=== PATIENT | male | born 1970 | race Two or more races ===

== ENCOUNTER 2022-07-10 14:26 | Outpatient (REF) | payer OTHER, SELFPAY ==
[2022-07-10 15:15] LABS: COVID-19 Test Negative (Negative); IDNOW Serial# 9DB6401D
== END 2022-07-10 14:27 | disposition home or self-care (01) ==
LOC: HO.LAB 14:26
PROVIDERS: Visit Provider Internal Medicine
DX: Z20.822 Contact with and (suspected) exposure to COVID-19 (principal)
CPT/HCPCS: 87635; C9803

== ENCOUNTER 2022-07-10 14:53 | Emergency (ER) | payer OTHER, SELFPAY ==
[2022-07-10 15:55] VITALS: BP 127/88; PULSE 104; RESP 16; TEMP 36.1; O2SAT 99; BMI 24.7
--- NOTE | 2022-07-10 15:57 | ED.GENADULT ---
HPI - General Adult General Chief complaint: Abdominal Pain <DAVI Ruiz Last Filed: 07/16/22 12:28> Stated complaint: Abd pain/Diarrhea <DAVI Ruiz Last Filed: 07/16/22 12:28> Time Seen by Provider: 07/10/22 17:13 <DAVI Ruiz Last Filed: 07/16/22 12:28> Source: patient <DAVI Garcia Last Filed: 07/10/22 18:16> Mode of arrival: ambulatory <DAVI Garcia Last Filed: 07/10/22 18:16> Limitations: no limitations <DAVI Garcia Last Filed: 07/10/22 18:16> History of Present Illness HPI narrative: 51-year-old male presents to the ER for evaluation of nausea, vomiting, diarrhea and upper abdominal pain that started yesterday. He reports not eating lunch or dinner because of ongoing nausea and upper abdominal pain. He reports nonbloody diarrhea and nonbloody vomitus. No fever or chills, no urinary symptoms or URI symptoms. Last thing he ate was breakfast sandwich yesterday morning, multiple other people had and he reports they have not been sick. He thinks he had some bad [place] food over the weekend. He states he was up all night vomiting and having diarrhea. Last episode was in the middle of the night. None today. He has not tried to eat or drink anything it today. Reports the pain is in his upper abdomen in the middle, burning in nature. No radiation. No chest pain or shortness of breath. <DAVI Garcia Last Filed: 07/10/22 18:16> MD complaint: Vomiting and diarrhea along with abdominal pain <DAVI Garcia Last Filed: 07/10/22 18:16> Onset (ago): day(s) (1) <DAVI Garcia Last Filed: 07/10/22 18:16> Location: abdomen <DAVI Garcia Last Filed: 07/10/22 18:16> Radiation: non-radiation <DAVI Garcia Last Filed: 07/10/22 18:16> Severity: moderate <DAVI Garcia Last Filed: 07/10/22 18:16> Quality: dull and other (Burning) <DAVI Garcia Last Filed: 07/10/22 18:16> Pain Consistency: intermittent <DAVI Garcia Last Filed: 07/10/22 18:16> Relieving factors: none <DAVI Garcia Last Filed: 07/10/22 18:16> Exacerbating factors: eating <DAVI Garcia - Last Filed: 07/10/22 18:16> Associated symptoms: loss of appetite, malaise, nausea/vomiting and weakness <DAVI Garcia Last Filed: 07/10/22 18:16> Treatments prior to arrival: none <DAVI Garcia Last Filed: 07/10/22 18:16> Related Data Home medications: Previous Rx's Medication Instructions Recorded ondansetron 4 mg disintegrating 4 mg PO Q8H PRN nausea and 07/10/22 tablet vomiting 3 days #10 tabs <DAVI Ruiz - Last Filed: 07/16/22 12:28> Allergies/adverse reactions: Allergies Allergy/AdvReac Type Severity Reaction Status Date / Time No Known Allergies Allergy Verified 07/10/22 15:54 <DAVI Ruiz Last Filed: 07/16/22 12:28> Review of Systems Review of Systems: Yes all other systems are reviewed and are negative <DAVI Garcia Last Filed: 07/10/22 18:16> [facility] Social History Social History: Social History Advance Directives: No Advance Directives Information Provided: No <DAVI Ruiz Last Filed: 07/16/22 12:28> Physical Exam ED Vital Signs: Vital Signs - 24 hr 07/10/22 15:55 Temperature 96.9 F Pulse Rate 104 H Respiratory Rate 16 Blood Pressure 127/88 Pulse Oximetry 99 Oxygen Delivery Method Room Air BMI result Body Mass Index 24.7 <DAVI Ruiz Last Filed: 07/16/22 12:28> Vital Signs - 24 hr 07/10/22 15:55 Temperature 96.9 F Pulse Rate 104 H Respiratory Rate 16 Blood Pressure 127/88 Pulse Oximetry 99 Oxygen Delivery Method Room Air BMI result Body Mass Index 24.7 <DAVI Garcia Last Filed: 07/10/22 18:16> Appearance: Alert. Oriented X3. No acute distress. Eyes: Pupils equal, round and reactive to light. ENT: Pharynx normal. Neck: Normal inspection. Neck supple. CVS: Normal heart rate and rhythm. Pulses normal. Respiratory: No respiratory distress. Breath sounds normal. Abdomen: Soft with epigastric abdominal tenderness, no rebound or guarding. +BS x4 Skin: Skin warm and dry. Normal skin color. Normal skin turgor. No rashes. Extremities: No lower extremity edema. Neuro: Oriented X 3. nonfocal <DAVI Garcia Last Filed: 07/10/22 18:16> Course Course Course Narrative: RME: 51 yold male presents to the ED for abdominal pain, nausea, vomitting, and mutliple episodes of diarrhea since yesterday. Patient denies blood in stool. patient denies vomiting blood. Labs ordered <DAVI Ruiz - Last Filed: 07/16/22 12:28> Reevaluation(s) Reevaluation #1: labs unremarkable. given GI cocktail and imodium. tolerating PO. no vomiting or diarrhea here. most likely gastgroenteritis. stable for d/c home with zofran and supportive care. patient agrees [facility] plan. <DAVI Garcia - Last Filed: 07/10/22 18:16> Medications Administered Discontinued Medications Generic Name Dose Route Start Last Admin Trade Name Freq PRN Reason Stop Dose Admin Al Hydroxide/Mg Hydroxide 30 ml 07/10/22 17:38 07/10/22 17:49 Magnesium Hydrox/Alum Hydrox 30 Ml Oral.Susp PO 07/10/22 17:39 30 ml ONCE ONE Administration Famotidine 20 mg 07/10/22 17:38 07/10/22 17:50 Famotidine 20 Mg Tablet PO 07/10/22 17:39 20 mg ONCE ONE Administration Lidocaine HCl 15 ml 07/10/22 17:38 07/10/22 17:50 Lidocaine Hcl Viscous 2 % 15 Ml Solution MUCOUS MEM 07/10/22 17:39 15 ml ONCE ONE Administration Loperamide HCl 4 mg 07/10/22 17:38 07/10/22 17:50 Loperamide Hcl 2 Mg Capsule PO 07/10/22 17:39 4 mg ONCE ONE Administration <DAVI Ruiz - Last Filed: 07/16/22 12:28> Medications Administered Discontinued Medications Generic Name Dose Route Start Last Admin Trade Name Kolby PRN Reason Stop Dose Admin Al Hydroxide/Mg Hydroxide 30 ml 07/10/22 17:38 07/10/22 17:49 Magnesium Hydrox/Alum Hydrox 30 Ml Oral.Susp PO 07/10/22 17:39 30 ml ONCE ONE Administration Famotidine 20 mg 07/10/22 17:38 07/10/22 17:50 Famotidine 20 Mg Tablet PO 07/10/22 17:39 20 mg ONCE ONE Administration Lidocaine HCl 15 ml 07/10/22 17:38 07/10/22 17:50 Lidocaine Hcl Viscous 2 % 15 Ml Solution MUCOUS MEM 07/10/22 17:39 15 ml ONCE ONE Administration Loperamide HCl 4 mg 07/10/22 17:38 07/10/22 17:50 Loperamide Hcl 2 Mg Capsule PO 07/10/22 17:39 4 mg ONCE ONE Administration <DAVI Garcia - Last Filed: 07/10/22 18:16> Medical Decision Making Differential Diagnosis Differential Diagnoses: The differential diagnosis associated with the presentation includes <DAVI Garcia - Last Filed: 07/10/22 18:16> Acute viral gastroenteritis, bacterial gastroenteritis, colitis, diverticulitis, cholecystitis, pancreatitis, viral URI, UTI, pyelonephritis, bowel obstruction <DAVI Garcia - Last Filed: 07/10/22 18:16> Lab Data MDM Lab Attestation statement: I reviewed the patient's lab results. <DAVI Garcia - Last Filed: 07/10/22 18:16> mildly elevated BUN and hemoconcentration c/w GI losses <DAVI Garcia - Last Filed: 07/10/22 18:16> Result Diagrams: 07/10/22 15:59 07/10/22 15:59 <DAVI Ruiz - Last Filed: 07/16/22 12:28> Labs: Lab Results 07/10/22 07/10/22 07/10/22 Range/Units 15:59 15:59 15:59 WBC 10.6 (4.8-10.8) X10*3/uL RBC 5.87 H (4.60-5.80) X10*6/uL Hgb 17.4 (14.0-18.0) g/dl Hct 52.6 H (42.0-52.0) % MCV 89.6 (80.0-98.0) fL MCH 29.6 (27.0-33.0) pg MCHC 33.1 (31.0-36.0) g/dl RDW 13.3 (11.0-16.0) % Plt Count 316 (160-400) X10*3/uL MPV 9.2 L (9.4-12.4) fL Immature Gran % (Auto) 0.3 (0.0-0.4) % Neut % (Auto) 72.8 (45-73) % Lymph % (Auto) 19.6 L (20-40) % [place] % (Auto) 6.0 (2-11) % Eos % (Auto) 1.2 (0-4) % Baso % (Auto) 0.1 (0-2) % Lymph # (Auto) 2.1 (1.2-4.9) X10*3/uL [place] # (Auto) 0.6 (0.1-1.2) X10*3/uL Eos # (Auto) 0.1 (0.0-0.4) X10*3/uL Baso # (Auto) 0.0 (0.0-0.2) X10*3/uL Abs Immat Gran (auto) 0.03 (0.00-0.03) X10*3/uL Absolute Neuts (auto) 7.7 (2.0-8.3) x10*3/uL Absolute Nucleated RBC 0.000 (0.0-0.012) X10*3/uL Nucleated RBC % (auto) 0.0 (0.0-0.2) /100WBC Sodium 139 (135-145) mmol/L Potassium 4.5 (3.3-5.1) mmol/L Chloride 104 (96-108) mmol/L Carbon Dioxide 27 (22-29) mmol/L Anion Gap 13 (12-20) BUN 24 H (9-16) mg/dL Creatinine 1.02 (0.5-1.4) mg/dL Estim Creat Clear Calc 90.4 Estimated GFR > 60 Random Glucose 104 (60-115) mg/dL Calcium 9.6 (8.4-10.2) mg/dL Total Bilirubin 1.3 H (0.0-1.0) mg/dL AST 15 (5-37) U/L ALT 17 (0-40) U/L Alkaline Phosphatase 86 (39-117) U/L Total Protein 8.0 (6.5-8.0) g/dL Albumin 4.8 (3.5-5.0) g/dL Lipase 15 (8-78) U/L Influenza Type A (PCR) NEGATIVE (Negative) Influenza Type B (PCR) NEGATIVE (Negative) RSV RNA Qual (PCR) NEGATIVE (Negative) SARS-CoV-2 RNA (RT-PCR) NEGATIVE (Negative) <DAVI Ruiz - Last Filed: 07/16/22 12:28> Lab Results 07/10/22 07/10/22 07/10/22 Range/Units 15:59 15:59 15:59 WBC 10.6 (4.8-10.8) X10*3/uL RBC 5.87 H (4.60-5.80) X10*6/uL Hgb 17.4 (14.0-18.0) g/dl Hct 52.6 H (42.0-52.0) % MCV 89.6 (80.0-98.0) fL MCH 29.6 (27.0-33.0) pg MCHC 33.1 (31.0-36.0) g/dl RDW 13.3 (11.0-16.0) % Plt Count 316 (160-400) X10*3/uL MPV 9.2 L (9.4-12.4) fL Immature Gran % (Auto) 0.3 (0.0-0.4) % Neut % (Auto) 72.8 (45-73) % Lymph % (Auto) 19.6 L (20-40) % [place] % (Auto) 6.0 (2-11) % Eos % (Auto) 1.2 (0-4) % Baso % (Auto) 0.1 (0-2) % Lymph # (Auto) 2.1 (1.2-4.9) X10*3/uL [place] # (Auto) 0.6 (0.1-1.2) X10*3/uL Eos # (Auto) 0.1 (0.0-0.4) X10*3/uL Baso # (Auto) 0.0 (0.0-0.2) X10*3/uL Abs Immat Gran (auto) 0.03 (0.00-0.03) X10*3/uL Absolute Neuts (auto) 7.7 (2.0-8.3) x10*3/uL Absolute Nucleated RBC 0.000 (0.0-0.012) X10*3/uL Nucleated RBC % (auto) 0.0 (0.0-0.2) /100WBC Sodium 139 (135-145) mmol/L Potassium 4.5 (3.3-5.1) mmol/L Chloride 104 (96-108) mmol/L Carbon Dioxide 27 (22-29) mmol/L Anion Gap 13 (12-20) BUN 24 H (9-16) mg/dL Creatinine 1.02 (0.5-1.4) mg/dL Estim Creat Clear Calc 90.4 Estimated GFR > 60 Random Glucose 104 (60-115) mg/dL Calcium 9.6 (8.4-10.2) mg/dL Total Bilirubin 1.3 H (0.0-1.0) mg/dL AST 15 (5-37) U/L ALT 17 (0-40) U/L Alkaline Phosphatase 86 (39-117) U/L Total Protein 8.0 (6.5-8.0) g/dL Albumin 4.8 (3.5-5.0) g/dL Lipase 15 (8-78) U/L Influenza Type A (PCR) NEGATIVE (Negative) Influenza Type B (PCR) NEGATIVE (Negative) RSV RNA Qual (PCR) NEGATIVE (Negative) SARS-CoV-2 RNA (RT-PCR) NEGATIVE (Negative) <DAVI Garcia - Last Filed: 07/10/22 18:16> Tests considered The following testing was considered but not selected: CT abd considered, not performed, only has tender epigastric area. lipase normal. <DAVI Garcia Last Filed: 07/10/22 18:16> Prescription Management I considered prescription management with: Pain Medication and Antibiotic <DAVI Garcia Last Filed: 07/10/22 18:16> most likely viral gastroenteritis, hold off on pain meds and abx, d/c with supportive care <DAVI Garcia Last Filed: 07/10/22 18:16> Critical Care Time Critical Care Time Critical Care Time: No <DAVI Garcia - Last Filed: 07/10/22 18:16> Discharge Plan Discharge Clinical Impression: Gastroenteritis <DAVI Ruiz Last Filed: 07/16/22 12:28> Patient Disposition: Home, Self-Care <DAVI Ruiz Last Filed: 07/16/22 12:28> Instructions: Gastroenteritis (ED) <DAVI Ruiz Last Filed: 07/16/22 12:28> Additional Instructions: You lab workup today was unremarkable. You most likely have a viral GI bug also known as gastroenteritis. Treatment is supportive care, symptoms usually resolve on their own in 48-72 hours. Recommend rest and plenty of oral hydration. Stick to a bland diet like soup and toast while you are not feeling well. Take the prescribed medication as needed for nausea. Recommend over the counter Pepto Bismol or Imodium for upset stomach and diarrhea. Follow up with your doctor as needed. If you develop new or worsening symptoms call 911 or come back to the ER for further evaluation. <DAVI Ruiz - Last Filed: 07/16/22 12:28> Prescriptions: New ondansetron 4 mg tablet,disintegrating 4 mg PO Q8H PRN (Reason: nausea and vomiting) 3 Days Qty: 10 0RF <DAVI Ruiz - Last Filed: 07/16/22 12:28> Stand Alone Forms: Work/School Release <DAVI Ruiz Last Filed: 07/16/22 12:28> Interventions: ED Discharge Assessment Last Done: 07/10/22 18:27 <DAVI Ruiz Last Filed: 07/16/22 12:28> Discharge Date/Time: 07/10/22 18:28 <DAVI Ruiz Last Filed: 07/16/22 12:28>
[2022-07-10 16:06] LABS: MANUAL DIFF FLAG NO
[2022-07-10 16:08] LABS: Basophils Percent Auto 0.1 % (0-2); Eosinophils Absolute Auto 0.1 X10*3/uL (0.0-0.4); Eosinophils Percent Auto 1.2 % (0-4); Hematocrit 52.6 % (42.0-52.0); Hemoglobin 17.4 g/dl (14.0-18.0); Imm Gran Abs Auto 0.03 X10*3/uL (0.00-0.03); Imm Gran Pct Auto 0.3 % (0.0-0.4); Lymphocytes Absolute Auto 2.1 X10*3/uL (1.2-4.9); Lymphocytes Percent Auto 19.6 % (20-40); Mean Corpuscular HGB Conc 33.1 g/dl (31.0-36.0); Mean Corpuscular Hemoglobin 29.6 pg (27.0-33.0); Mean Corpuscular Volume 89.6 fL (80.0-98.0); Mean Platelet Volume 9.2 fL (9.4-12.4); Monocytes Absolute Auto 0.6 X10*3/uL (0.1-1.2); Neutrophils Absolute Auto 7.7 x10*3/uL (2.0-8.3); Neutrophils Percent Auto 72.8 % (45-73); Platelet Count 316 X10*3/uL (160-400); Red Blood Count 5.87 X10*6/uL (4.60-5.80); Red Cell Distribution Width 13.3 % (11.0-16.0); White Blood Count 10.6 X10*3/uL (4.8-10.8)
[2022-07-10 16:28] LABS: Alanine Aminotransferase 17 U/L (0-40); Albumin Level 4.8 g/dL (3.5-5.0); Alkaline Phosphatase 86 U/L (39-117); Anion Gap 13 (12-20); Aspartate Amino Transferase 15 U/L (5-37); Bilirubin Total 1.3 mg/dL (0.0-1.0); Blood Urea Nitrogen 24 mg/dL (9-16); Calcium 9.6 mg/dL (8.4-10.2); Carbon Dioxide 27 mmol/L (22-29); Chloride 104 mmol/L (96-108); Creatinine Clr Calc Pharmacy 90.4; Estimated Glomerular Filt Rate > 60; Glucose Random 104 mg/dL (60-115); Lipase 15 U/L (8-78); Potassium 4.5 mmol/L (3.3-5.1); Sodium 139 mmol/L (135-145)
[2022-07-10 16:54] LABS: Influenza A PCR NEGATIVE (Negative); Influenza B PCR NEGATIVE (Negative); Resp Syncy Virus RNA Qual PCR NEGATIVE (Negative); SARS COV2 PCR INHOUSE NEGATIVE (Negative)
[2022-07-10] MEDS: Magnesium Hydrox/Alum Hydrox 30 ML ORAL.SUSP PO (17:49)
[2022-07-10] MEDS: Famotidine 20 MG TABLET PO (17:50)
[2022-07-10] MEDS: Lidocaine HCl Viscous 2 % 15 ML SOLUTION MUCOUS MEM (17:50)
[2022-07-10] MEDS: Loperamide HCl 2 MG CAPSULE 4 MG PO (17:50)
== END 2022-07-10 18:28 | disposition home or self-care (01) ==
PROVIDERS: Physician Assistant; Emergency Provider Emergency Medicine Emergency Medical Services
DX: K52.9 Noninfective gastroenteritis and colitis, unspecified (principal); R11.2 Nausea with vomiting, unspecified; Z20.822 Contact with and (suspected) exposure to COVID-19; Z20.828 Contact with and (suspected) exposure to other viral communicable diseases
CPT/HCPCS: 0241U; 80053; 83690; 85025; 99282; 99283

== ENCOUNTER 2022-10-04 22:30 | Emergency (ER) | payer OTHER, SELFPAY ==
[2022-10-04 22:41] VITALS: BP 120/72; PULSE 100; RESP 16; TEMP 37.1; O2SAT 96; BMI 26.1
--- NOTE | 2022-10-05 02:20 | PC.NURSE ---
Pt remains frustrated that no MD has signed up for him. This RN notified by registration that pt left ED.
== END 2022-10-05 02:20 | disposition left against medical advice (07) ==
PROVIDERS: Emergency Provider Emergency Medicine; PCP Internal Medicine
DX: Z04.1 Encounter for examination and observation following transport accident (principal); M54.50 Low back pain, unspecified
CPT/HCPCS: 99281

== ENCOUNTER 2023-01-07 14:48 | Emergency (ER) | payer OTHER, SELFPAY ==
[2023-01-07] VITALS (8 sets, daily range): BP systolic 93–138; BP diastolic 53–82; PULSE 86–108; RESP 16–24; TEMP 36.6–36.8; O2SAT 95–98; BMI 27.6
--- NOTE | ~2023-01-07 | CT_ITS ---
EXAMINATION: CT HEAD WITHOUT CONTRAST (STROKE PROTOCOL) CLINICAL INFORMATION: Stroke protocol. COMPARISON: None available. TECHNIQUE: Contiguous axial imaging was performed from the skull base to vertex without intravenous administration of contrast. This CT examination was performed using dose optimization techniques as appropriate, variously including the following: *Automated exposure control *Adjustment of mA and/or kV according to patient size (this includes techniques or standardized protocols for targeted exams where dose is matched to indication/reason for exam; i.e. extremities or head) *Use of iterative reconstruction technique DLP: 741 mGy-cm FINDINGS: BRAIN PARENCHYMA: No acute hemorrhage. No mass effect or herniation. Rivero-white differentiation is maintained. White matter is within normal limits for age. VENTRICLES/EXTRA-AXIAL SPACES: No hydrocephalus or extra-axial fluid collections. EXTRACRANIAL STRUCTURES: Normal bones and soft tissues. Visualized paranasal sinuses and mastoids are clear. CT/CT head for stroke IMPRESSION: No acute intracranial pathology. Follow-up by CT will be followed by CTA This critical result was discussed with Dr. Colvin at 3:10 PM hours on 01/07/2023. It was ascertained that the content and urgency of the report was understood at the time of direct communication.
--- NOTE | ~2023-01-07 | MR_ITS ---
MRI OF THE BRAIN WITHOUT IV CONTRAST INDICATION: Right-sided deficits. COMPARISON: CT head and CTA head and neck 01/07/2023. TECHNIQUE: Multiplanar multisequence MR imaging of the brain was obtained without IV contrast. FINDINGS: This MRI is very limited due to significant artifact from dental hardware. There is an acute infarct within the posterior left MCA territory involving portions of the left parietal lobe, the left temporal operculum, and the posterior left insular ribbon. There is no significant mass effect and there is no definite hemorrhagic transformation with assessment limited by artifact. A punctate focus of increased signal on diffusion-weighted imaging within the left jared is felt to be artifactual. There is no hydrocephalus, extra-axial surface collection, or herniation. Attenuated left M1 MCA flow void in keeping with the left middle cerebral artery occlusion seen on the earlier CT of the head and neck. There is mild background chronic microangiopathy. The midline structures are normal. The cerebellar tonsils are normally positioned. The cerebellum and brainstem are normal. The craniocervical junction is normal. Osseous marrow signal intensity is homogenous. The visualized soft tissues are unremarkable. MR/MR head/brain wo con IMPRESSION: - This MRI is very limited due to significant artifact from dental hardware. There is an acute infarct within the posterior left MCA territory involving portions of the left parietal lobe, the left temporal operculum, and the posterior left insular ribbon. There is no significant mass effect and there is no definite hemorrhagic transformation with assessment limited by artifact. - Attenuated left M1 MCA flow void in keeping with the left middle cerebral artery occlusion seen on the earlier CT of the head and neck. Findings discussed with Dr. Treva Colvin at 4:24 PM on 01/07/2023.
--- NOTE | ~2023-01-07 | XR_ITS ---
EXAMINATION: XR CHEST CLINICAL INFORMATION: Cough. COMPARISON: None available. TECHNIQUE: Frontal view of the chest was obtained. FINDINGS: No significant cardiomediastinal contour abnormality. Minimal diffuse interstitial thickening without focal airspace opacities, pleural effusions or pneumothorax. No acute osseous findings. The visualized upper abdomen is within normal limits. XR/XR chest 1V IMPRESSION: Minimal interstitial thickening which is nonspecific and could be associated with asthma, bronchitis, reactive airways disease or atypical infections.
--- NOTE | ~2023-01-07 | CT_ITS ---
EXAMINATION: CT ANGIOGRAM HEAD CT ANGIOGRAM NECK CLINICAL INFORMATION: rt side hemiplegia, left facial asymm COMPARISON: None. TECHNIQUE: Test bolus sequences followed by intravenous administration 70 mL of Omnipaque 350. Helical imaging was performed in the axial plane from the aortic arch to the skull vertex. Delayed postcontrast imaging of the head was also performed. The data was processed at the office technologist's workstation for generation of MIP sequences. Angled MIPs and volume rendered reformatted images were also generated at an offline 3D workstation. Stenoses are assessed in accordance with Michelle et al. Quantification of Carotid Stenosis on CT Angiography. AJR 2006. 27(1):13-19. [address] CT examination was performed using dose optimization techniques as appropriate, variously including the following: *Automated exposure control *Adjustment of mA and/or kV according to patient size (this includes techniques or standardized protocols for targeted exams where dose is matched to indication/reason for exam; i.e. extremities or head) *Use of iterative reconstruction technique DLP: 1621 mGy-cm FINDINGS: CT HEAD: The ventricles and sulci are normal in size and configuration without significant volume loss or hydrocephalus. There is no abnormal attenuation within the brain parenchyma. No territorial loss of emerson-white differentiation. No acute intracranial hemorrhage or extra-axial fluid collection. No mass lesion, significant mass effect, or herniation pattern. No pathologic intra-axial enhancement or regional oligemia. The orbits are grossly normal. Paranasal sinuses and mastoid air cells are well aerated. Osseous structures are intact. CTA HEAD: There is an abrupt vessel cut off at the left distal M1 post bifurcation segment involving a trifurcation branch extending into the M2 division with preserved opacification of the two remaining superior and inferior division branches (image 76, series 7). configuration of the left PICA complex. No aneurysms and no high flow vascular malformations. Timing of the contrast bolus allows assessment of the major dural venous sinuses, which all opacify normally CTA NECK: Small of suboptimal timing of contrast bolus. Beam hardening artifact limits assessment of the great vessels. Classic 3 vessel branching pattern of the aortic arch. The common carotid arteries are widely patent. The carotid bifurcations and bilateral internal carotid arteries are normal. The vertebral arteries are codominant The vertebral artery ostia are widely patent. Both vertebral arteries are widely patent throughout their extracranial cervical course. CT NECK: Symmetric prominence of the bilateral palatine tonsils for patient's age. Dependent secretions within the hypopharynx. Medialized right aryepiglottic fold with prominent right piriform sinus and right laryngeal ventricle which can correlated clinically for signs of right vocal cord paresis. Patulous appearance of the upper thoracic esophagus. The visualized lung apices and upper mediastinum are within normal limits. Cervical spondylosis. CT/CT angio head neck stroke IMPRESSION: 1. Abrupt vessel cut off/arterial occlusion at the left distal M1 post bifurcation segment involving a trifurcation branch extending into the M2 division with preserved opacification of the two remaining superior and inferior division branches (image 76, series 7). This was communicated to Treva Colvin MD on 01/07/2023 at 12:48 PM. No definite loss of emerson-white differentiation in the left MCA territory, noting MRI would be more sensitive modality for assessment of acute ischemia. 2. No acute arterial occlusion or hemodynamically significant stenosis within the neck. 3. Findings described above that can be correlated for signs of right vocal cord paresis.
--- NOTE | 2023-01-07 14:54 | ED_ITS ---
HPI - Neuro Symptoms/Deficit General Chief Complaint: Stroke Stated Complaint: STROKE ALERT,LKWT 10AM,R SIDE DEFICIT PER EMS Time Seen by Provider: 01/07/23 14:52 Source: EMS Mode of arrival: EMS History of Present Illness HPI Narrative: 61-year-old male brought in by EMS with last known well at 10:00 hours from home, profound right-sided hemiplegia and right-sided facial asymmetry Related Data Previous Rx's Medication Instructions Recorded ondansetron 4 mg disintegrating 4 mg PO Q8H PRN nausea and 07/10/22 tablet vomiting 3 days #10 tabs Allergies Allergy/AdvReac Type Severity Reaction Status Date / Time No Known Allergies Allergy Verified 01/07/23 15:11 Review of Systems Review of Systems: Yes Unobtainable due to mental condition PMFSH Past Medical History Source: nursing notes reviewed Social History Social History (System 01/07/23 @ 15:11 by Quiana Hussein) Advance Directives: No Advance Directives Information Provided: No Physical Exam Vital Signs: Vital Signs: Last Vital Signs Temp 98 F 01/07/23 17:15 Pulse 98 01/07/23 17:55 Resp 18 01/07/23 17:55 BP 132/77 01/07/23 17:55 Pulse Ox 98 01/07/23 17:55 O2 Del Method Room Air 01/07/23 17:55 BMI result Body Mass Index 27.6 VITAL SIGNS: Reviewed. GENERAL: Well developed, well nourished, in no acute distress. HEAD: Normocephalic/atraumatic EYES: PERRLA, EOMI EARS: Ext canals without abnormality NOSE: Nares patent bilateral OROPHARYNX: no oral lesions noted, posterior pharynx clear NECK: Supple, no adenopathy LUNGS: Normal breath sounds. No adventitious sounds or accessory muscle use. CARDIOVASCULAR: Regular rate and rhythm without noted murmurs, no JVD or lower extremity edema. ABDOMEN: Soft, non-tender, non-distended with bowel sounds. MUSCULOSKELETAL: No tenderness, deformities, or effusions noted on gross inspection. EXTREMITIES: No cyanosis, clubbing or edema. SKIN: Inspection of the skin reveals no rashes NEUROLOGIC: Alert but with profound right-sided he hemiplegia, dysarthria, right-sided facial asymmetry. Medications Administered Discontinued Medications Generic Name Dose Route Start Last Admin Trade Name Freq PRN Reason Stop Dose Admin Alteplase, Recombinant 74.16 mg 01/07/23 16:09 01/07/23 16:18 Alteplase 100 Mg Vial 0.9 mg/kg (74.16 mg) 01/07/23 16:10 74.16 mg IV Administration ONCE ONE Dextrose 25 gm 01/07/23 16:50 01/07/23 17:33 Dextrose 50 % 25 Gm/50 Ml Syringe IVPUSH 01/07/23 16:51 25 gm ONCE ONE Administration Calcium Gluconate 2 gm in 100 mls @ 400 mls/hr 01/07/23 16:50 01/07/23 17:36 Calcium Gluconate IV 01/07/23 17:04 Infused ONCE ONE Infusion Sodium Chloride 1,000 mls @ 999 mls/hr 01/07/23 17:00 01/07/23 17:33 Ns IV 01/07/23 18:00 999 mls/hr .Q1H1M MARZENA Administration Insulin Human Regular 5 unit 01/07/23 16:50 01/07/23 17:33 Insulin Regular, Human 100 Unit/Ml 3 Ml Vial IVPUSH 01/07/23 16:51 5 unit ONCE ONE Administration Iohexol 100 ml 01/07/23 15:09 01/07/23 15:09 Iohexol 350 Mg/Ml 100 Ml Infus..Btl IV 01/07/23 15:10 70 ml ONCE ONE Administration Medical Decision Making Medical Decision Making MDM Narrative: 1455: Consulted with Neurology after activation stroke protocol. There are 2 charts for the patient, and original chart the did not have patient's prior information was retained as entire stroke protocol was initiated off of it, however in the interim an additional chart had been started and lab work was sent under that identification number and is not currently showing up. I am awaiting for chart emerging to occur. DDX: ischemic, hemorrhagic, LVO 1510: Pt noted to be using right upper extremity although uncoordinated movement, able to lift right leg but unable to have coordinated moved, patient also reports the sensation is blunted. Additional information obtained with court interpreter and patient states that he has had intermittent fevers and chills as well as nausea and vomiting. 1511: [facility] called and informed me that there are no acute findings on the noncontrast CT head. 1548: Call from [facility] and informed that there is a cut off from left MCA M1 extending into M2 1554: I have reached out to [facility] for LV0 protocol, have notified Shraddha Navas who is the curriculum development coordinator and is down MRI currently and will return the patient to the emergency room. All images have been transferred over to [facility]. 1610: Both Dr. Mueller and Shraddha have informed me that there is a MRI flare dif ference indicating treatment with tPA, this is been ordered and will be administered shortly. 1615: I spoke with Dr. Hewitt at [facility] who would like to see the MRI and after he has reviewed these imaging studies will call back. 1627: I spoke with Dr. Hewitt at [facility] who states that the best management at this time is the tPA and when asked if there would be any interventions indicated given the age and presentation of the patient I was informed that there was nothing further that could be done for the brain tissue. 1633: I reaching out to [facility] after speaking with Dr. Mueller regarding the decision by [facility]. If there is consensus for no intervention then patient will stay here in our ICU. 1640: I spoke with [facility] who is accepting the patient ED to ED under Dr. Rollins and the transfer center will contact me to speak with the neurologist. 1700: The laboratory results have finally posted to the patient's chart and I have reviewed these, hematologic indices demonstrate a leukocytosis with left shift without anemia or thrombocytopenia. Patient will receive 2 g cefepime and an additional L of IV fluids Coagulation studies are grossly within normal benites its, chemistry indices demonstrate a hyperkalemia with corresponding YURI, this will be treated with 2 g calcium gluconate as well as 5 units regular insulin and an amp of D50. Otherwise, troponin is undetectable, CPK- 61. This is a 52-year-old male with known diabetes and HIV who presents with MCA stroke and was treated with tPA. On review of patient's lab work there is an YURI with hyperkalemia and leukocytosis which is new, given that patient also arrived tachycardic and low blood pressures which I would not expect to see with an MCA stroke I a.m. assuming that patient may have an underlying infectious etiology and so he was treated with IV fluids and antibiotics as well as treatment for the elevated potassium levels. Will pursue a chest x-ray, Harris, and UA 1710: On re-evaluation pt speech is improved and RUE/RLE with movement that is better controlled. 1713: Dr Mojica, [facility], who is accepting the patient to [facility] an evaluation for thrombectomy. 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 Patient is not hypoxic so do not expect that this is a pneumonia. Differential Diagnosis Differential Diagnoses: The differential diagnosis associated with the presentation includes Please see the discussion above Admission/Observation Consideration of admission/observation: Escalation of care including admission/observation considered Please see the discussion above Consult Healthcare Provider Management of the patient was discussed with: [facility] Advocate Please see the discussion above Lab Data MDM Lab Attestation statement: I reviewed the patient's lab results. I do not have access to lab results 01/07/23 15:25 01/07/23 15:25 Labs: Lab Results 01/07/23 01/07/23 01/07/23 Range/Units 15:17 15:25 15:25 WBC 17.4 H (4.8-10.8) X10*3/uL RBC 5.59 (4.60-5.80) X10*6/uL Hgb 16.8 (14.0-18.0) g/dl Hct 51.5 (42.0-52.0) % MCV 92.1 (80.0-98.0) fL MCH 30.1 (27.0-33.0) pg MCHC 32.6 (31.0-36.0) g/dl RDW 13.5 (11.0-16.0) % Plt Count 342 (160-400) X10*3/uL MPV 9.4 (9.4-12.4) fL Immature Gran % (Auto) 1.2 H (0.0-0.4) % Neut % (Auto) 81.1 H (45-73) % Lymph % (Auto) 7.8 L (20-40) % [place] % (Auto) 8.9 (2-11) % Eos % (Auto) 0.7 (0-4) % Baso % (Auto) 0.3 (0-2) % Lymph # (Auto) 1.4 (1.2-4.9) X10*3/uL [place] # (Auto) 1.5 H (0.1-1.2) X10*3/uL Eos # (Auto) 0.1 (0.0-0.4) X10*3/uL Baso # (Auto) 0.1 (0.0-0.2) X10*3/uL Abs Immat Gran (auto) 0.21 H (0.00-0.03) X10*3/uL Absolute Neuts (auto) 14.1 H (2.0-8.3) x10*3/uL Absolute Nucleated RBC 0.000 (0.0-0.012) X10*3/uL Nucleated RBC % (auto) 0.0 (0.0-0.2) /100WBC PT 11.5 (11.1-13.3) SEC Whole Blood PT 12.5 (11.1-13.5) sec INR 0.9 (0.9-1.1) Whole Blood INR 1.0 (0.9-1.1) APTT 28.5 (26.0-36.4) SEC Sodium (135-145) mmol/L Potassium (3.3-5.1) mmol/L Chloride (96-108) mmol/L Carbon Dioxide (22-29) mmol/L Anion Gap (12-20) BUN (9-16) mg/dL Creatinine (0.5-1.4) mg/dL Estim Creat Clear Calc Estimated GFR Random Glucose (60-115) mg/dL Calcium (8.4-10.2) mg/dL Total Creatine Kinase (38-174) U/L Troponin I High Sens (<3.5-35.0) ng/L 01/07/23 01/07/23 Range/Units 15:25 15:25 WBC (4.8-10.8) X10*3/uL RBC (4.60-5.80) X10*6/uL Hgb (14.0-18.0) g/dl Hct (42.0-52.0) % MCV (80.0-98.0) fL MCH (27.0-33.0) pg MCHC (31.0-36.0) g/dl RDW (11.0-16.0) % Plt Count (160-400) X10*3/uL MPV (9.4-12.4) fL Immature Gran % (Auto) (0.0-0.4) % Neut % (Auto) (45-73) % Lymph % (Auto) (20-40) % [place] % (Auto) (2-11) % Eos % (Auto) (0-4) % Baso % (Auto) (0-2) % Lymph # (Auto) (1.2-4.9) X10*3/uL [place] # (Auto) (0.1-1.2) X10*3/uL Eos # (Auto) (0.0-0.4) X10*3/uL Baso # (Auto) (0.0-0.2) X10*3/uL Abs Immat Gran (auto) (0.00-0.03) X10*3/uL Absolute Neuts (auto) (2.0-8.3) x10*3/uL Absolute Nucleated RBC (0.0-0.012) X10*3/uL Nucleated RBC % (auto) (0.0-0.2) /100WBC PT (11.1-13.3) SEC Whole Blood PT (11.1-13.5) sec INR (0.9-1.1) Whole Blood INR (0.9-1.1) APTT (26.0-36.4) SEC Sodium 138 (135-145) mmol/L Potassium 5.9 H D (3.3-5.1) mmol/L Chloride 107 (96-108) mmol/L Carbon Dioxide 17 L (22-29) mmol/L Anion Gap 20 (12-20) BUN 27 H (9-16) mg/dL Creatinine 3.03 H (0.5-1.4) mg/dL Estim Creat Clear Calc TNP Estimated GFR 22 Random Glucose 173 H (60-115) mg/dL Calcium 8.9 D (8.4-10.2) mg/dL Total Creatine Kinase 61 (38-174) U/L Troponin I High Sens < 2.7 (<3.5-35.0) ng/L Independent Interpretation I performed an independent interpretation of an: EKG Interpretation: Sinus tachycardia, HR-105, no STEMI, DE/QRS/QTC is within normal limits. Radiology Impression Radiologist Impression: No intracranial hemorrhage, LV0, otherwise my interpretation is in agreement with radiology's impression. External Record Review External record reviewed: Outpatient record and Prior outpatient labs Chronic Conditions Patient?s care impacted by: Diabetes and Other HIV NIH Stroke Scale Internal: Initial- Upon Arrival Level of Consciousness: Alert Level of Consciousness Questions: Answers neither question correctly Level of Consciousness Commands: Performs neither task correctly Best Gaze: Normal Visual: No visual loss Facial Palsy: Complete paralysis (Right) Motor Arm (Right): No movement Motor Arm (Left): No drift Motor Leg (Right): No movement Motor Leg (Left): No drift Limb Ataxia: Absent Sensory: Mild to moderate sensory loss Best Language: Severe aphasia Dysarthia: Mild to moderate dysarthria Extinction and Inattention: No abnormality Score: 19 Critical Care Time Critical Care Time Critical Care Time: Yes Total Critical Care Time: 90 Attestation: I personally attest to this time spent taking care of the patient. Discharge Plan Discharge Clinical Impression: Acute ischemic left MCA stroke, Hyperkalemia, YURI (acute kidney injury), Sepsis Patient Disposition: Xfer [facility] Transfer Details: Acute stroke, sepsis Prescriptions: No Action ondansetron 4 mg tablet,disintegrating 4 mg PO Q8H PRN (Reason: nausea and vomiting) 3 Days Qty: 10 0RF
[2023-01-07] MEDS: iohexoL 350 MG/ML 100 ML INFUS..BTL IV (15:09)
[2023-01-07 15:28] LABS: MANUAL DIFF FLAG NO
[2023-01-07 15:31] LABS: Basophils Absolute Auto 0.1 X10*3/uL (0.0-0.2); Basophils Percent Auto 0.3 % (0-2); Eosinophils Absolute Auto 0.1 X10*3/uL (0.0-0.4); Eosinophils Percent Auto 0.7 % (0-4); Hematocrit 51.5 % (42.0-52.0); Hemoglobin 16.8 g/dl (14.0-18.0); Imm Gran Abs Auto 0.21 X10*3/uL (0.00-0.03); Imm Gran Pct Auto 1.2 % (0.0-0.4); Lymphocytes Absolute Auto 1.4 X10*3/uL (1.2-4.9); Lymphocytes Percent Auto 7.8 % (20-40); Mean Corpuscular HGB Conc 32.6 g/dl (31.0-36.0); Mean Corpuscular Hemoglobin 30.1 pg (27.0-33.0); Mean Corpuscular Volume 92.1 fL (80.0-98.0); Mean Platelet Volume 9.4 fL (9.4-12.4); Monocytes Absolute Auto 1.5 X10*3/uL (0.1-1.2); Monocytes Percent Auto 8.9 % (2-11); Neutrophils Absolute Auto 14.1 x10*3/uL (2.0-8.3); Neutrophils Percent Auto 81.1 % (45-73); Platelet Count 342 X10*3/uL (160-400); Red Blood Count 5.59 X10*6/uL (4.60-5.80); Red Cell Distribution Width 13.5 % (11.0-16.0); SCAN SMEAR FLAG 1; White Blood Count 17.4 X10*3/uL (4.8-10.8)
[2023-01-07 15:36] LABS: INTERNATIONAL NORM RATIO 0.9 (0.9-1.1); Prothrombin Time 11.5 SEC (11.1-13.3)
[2023-01-07 15:38] LABS: Partial Thromboplastin Time 28.5 SEC (26.0-36.4)
[2023-01-07 15:40] LABS: Stroke Lab Use COMPLETE
[2023-01-07 15:49] LABS: Prothrombin Time Whole Bld POC 12.5 sec (11.1-13.5)
[2023-01-07 15:50] LABS: Anion Gap 20 (12-20); Blood Urea Nitrogen 27 mg/dL (9-16); Calcium 8.9 mg/dL (8.4-10.2); Carbon Dioxide 17 mmol/L (22-29); Chloride 107 mmol/L (96-108); Estimated Glomerular Filt Rate 22; Glucose Random 173 mg/dL (60-115); Potassium 5.9 mmol/L (3.3-5.1); Sodium 138 mmol/L (135-145)
[2023-01-07 15:59] LABS: Troponin-I High Sensitivity < 2.7 ng/L (<3.5-35.0)
--- NOTE | 2023-01-07 16:14 | P.CNNE_ITS ---
History of Present Illness Data of Consult Service Date: 01/07/23 Primary Care Provider: Claudia Palacios MD [facility] Reason for consult: Stroke 52 years old man brought to emergency room with right-sided weakness. Apparent ly he woke up at 10:00 and it was not clear when he slept. So the last time normal could not be determined. I was asked to see him in emergency room vera I examine him. He was unable to provide any meaningful history. There was no evidence of any seizure per Review of Systems Review of Systems: Could not be reliably done with him [facility] Social History Social History (System 01/07/23 @ 15:11 by Quiana Hussein) Advance Directives: No Advance Directives Information Provided: No Meds Allergies Allergy/AdvReac Type Severity Reaction Status Date / Time No Known Allergies Allergy Verified 01/07/23 15:11 Physical Exam Vital Signs: Vital Signs: Last Vital Signs Temp 98.2 F 01/07/23 15:34 Pulse 101 H 01/07/23 15:34 Resp 22 H 01/07/23 15:34 BP 96/56 L 01/07/23 15:34 Pulse Ox 97 01/07/23 15:34 O2 Del Method Room Air 01/07/23 15:34 BMI result Body Mass Index 27.6 Neuro: Other: He was alert and awake but with vague affect. He was looking around and occasionally would make eye contact. There was no twitching. He told us his 1st name and when asked where he was, he stated that he was at home he was following simple commands. There was moderate right-sided central facial weakness moderate right hemiparesis with right extensor plantar. Results Labs Labs: Noncontrast head CT revealed slight obliteration of left basal ganglia compared to right suggestive of possible acute ischemia. CTA revealed a branch left middle cerebral artery occlusion and a noncontrast head MRI revealed a large area of restricted diffusion and left middle cerebral artery territory with almost no corresponding FLAIR abnormality. MRI was done because of low lack of clear indication of time of onset of this problem. Assessment and Plan (1) Cerebrovascular accident: Status: Acute 52 years old man with acute cerebral infarction affecting left middle cerebral artery with unclear etiology. At this time my recommendation is to treat ward ent with intravenous tPA despite long time delay because of significant DWI and FLAIR difference. This suggested hyper acute cerebral infarction. Also because of the type of deficit and the amount of cerebral infarction, and CT of finding, transferred to tertiary care center for possible revascularization procedure is recommended. His blood pressure is on the lower side and I suggest hydration and elimination of any medicine that could drop his blood pressure. Tox screen is also record Time Spent With Patient Time: Total time managing care of this patient today ____ minutes. Procedures Date of Service Date of Service: 01/07/23
--- NOTE | 2023-01-07 16:29 | PC.NURSE ---
patient presented to the ED with right sided weakness, unable to lift leg and move arm. patient had significant left sided weakness. patient brought to CT scan. Patient had 16# g IV placed by EMS, 20# iv placed in the right AC. Patient sent to MRI. Returning from MRI pt VSS. TPA started Vital Signs Stable.
--- NOTE | 2023-01-07 16:49 | PC.NURSE ---
patient sleeping in stretcher, respirations equal and unlabored. patient shows no signs of distress, VSS, TPA running via drip
--- NOTE | 2023-01-07 16:51 | MHC.STROKE ---
Addendum entered by Shraddha Navas RN 01/07/23 17:32: DELAY IN EMS TRANSFER TO [facility]. I SPOKE WITH [facility] [employer] PERSON AND THEY ARE LOOKING FOR AN ACLS RIG. Original Note: 01/07/23 1444 EMS NOTIFIED, NO STROKE ALERT. ARRIVED AT [facility] 1448, AT 1455 I WAS NOTIFIED BY ED THAT A STROKE PROTOCOL WAS ACTIVATED. DR GONZALEZ, RIGHT HEMIPARESIS ONSET 1000. STAT CTH AND CTA H/N ORDERED. CLARIFYING LKW. DR MCLAUGHLIN NOTIFIED. MRI REQUESTED. MRI WITH DWI/T2 FLAIR MISMATCH. DR. MCLAUGHLIN RECOMMENDING TPA/ALTEPLASE. TPA ORDERED, BOLUS DOSE GIVEN AT 1619. [id number] = 91 MINUTES. DELAY IN TPA ADMINISTRATION DUE TO CLARIFYING ONSET OF SYMPTOMS AND ADDITIONAL TESTING REQUIRED MRI TO DETERMINE TPA ELIGIBILITY. [facility] RESELLER PRESENT THE ENTIRE TIME TO ASSIST AND HELP WITH MRI SCREENING FORM. CTA WITH LVO LEFT M1, M2. COORINDATING TRANSFER TO [facility], REFUSED BY [facility] AND ACCEPTED BY [facility]. REMAINED NPO FAILED SWALLOW SCREEN.
[2023-01-07] MEDS: Calcium Gluconate/NaCl,Iso-Osm 2 GM/100 ML PLAST..BAG IV (17:01)
[2023-01-07] MEDS: Insulin Regular, Human 100 UNIT/ML 3 ML VIAL IVPUSH (17:33)
[2023-01-07] MEDS: 0.9 % Sodium Chloride 1,000 ML 999 ML IV (17:33)
[2023-01-07] MEDS: Dextrose 50 % 25 GM/50 ML SYRINGE IVPUSH (17:33)
--- NOTE | 2023-01-07 17:39 | PC.NURSE ---
patient resting in stretcher, patient arouses to verbal stimuli, responds to commands. patient speech becoming more clear. patient able to lift right leg and mobility improved but still not coordinated to right arm. patients vitals have remained stable. respirations equal and unlabored, pt managing own airway.
--- NOTE | 2023-01-07 18:14 | PC.NURSE ---
nurse to nurse given to Raquel at [facility] ER
[2023-01-08 07:34] LABS: Glucose, Whole Blood 167 mg/dL (60-115)
== END 2023-01-07 18:16 | disposition short-term general hospital (02) ==
PROVIDERS: Emergency Provider Student in an Organized Health Care Education/Training Program; PCP Internal Medicine
DX: I63.512 Cerebral infarction due to unspecified occlusion or stenosis of left middle cerebral artery (principal); G81.91 Hemiplegia, unspecified affecting right dominant side; R29.810 Facial weakness; R47.1 Dysarthria and anarthria; R29.719 NIHSS score 19; E87.5 Hyperkalemia; N17.9 Acute kidney failure, unspecified; A41.9 Sepsis, unspecified organism; D72.829 Elevated white blood cell count, unspecified; R00.0 Tachycardia, unspecified; E11.9 Type 2 diabetes mellitus without complications; B20 Human immunodeficiency virus [HIV] disease; Z79.899 Other long term (current) drug therapy
CPT/HCPCS: 36415; 37195; 70450; 70496; 70498; 70551; 71045; 80048; 82550; 82947; 84484; 85025; 85610; 85730; 96365; 96375; 99285; J0613; J2997; Q9967

== ENCOUNTER 2024-01-14 13:08 | Emergency (ER) | payer OTHER, SELFPAY ==
--- NOTE | ~2024-01-14 | CT_ITS ---
EXAM: 1. CT chest without IV contrast 2. CT abdomen pelvis with IV contrast INDICATION: Tachycardia. Nausea, vomiting and diarrhea. COMPARISON: CT chest, abdomen and pelvis January 09, 2023 TECHNIQUE: Multidetector helical imaging of the chest was performed prior to IV contrast administration. Axial imaging of the abdomen and pelvis was then obtained from the thoracic inlet through the pubic symphysis following administration of 85 cc of Omnipaque 350 IV contrast. Coronal and sagittal reformatted images that were obtained were also reviewed. This CT examination was performed using dose optimization techniques as appropriate, variously including the following: *Automated exposure control *Adjustment of mA and/or kV according to patient size (this includes techniques or standardized protocols for targeted exams where dose is matched to indication/reason for exam; i.e. extremities or head) *Use of iterative reconstruction technique DLP: 904 mGy-cm FINDINGS: CHEST: Central airways are patent. Lungs are well aerated. There is mild dependent opacities most suggestive of atelectasis. There is no lobar consolidation. No pleural effusion or pneumothorax. Stable 3 mm right upper lobe pulmonary nodule. No new suspicious pulmonary nodules visualized. The heart is normal in size. No appreciable coronary artery calcifications. No pericardial effusion. Normal caliber thoracic aorta. Embolization plug noted within the right atrium. No gross mediastinal or hilar lymphadenopathy appreciated on today's noncontrast imaging. No pathologically enlarged axillary lymph nodes. ABDOMEN/PELVIS: The liver is normal in size. The gallbladder is normal in appearance. The pancreas, spleen and adrenal glands are unremarkable. Symmetrically enhancing kidneys without hydronephrosis. Tiny left renal cyst. Normal caliber loops of small and large bowel. Normal appendix. Normal caliber abdominal aorta. Circumaortic left renal vein. No retroperitoneal lymphadenopathy. The bladder is incompletely distended. There appears to be mild diffuse bladder wall thickening. The prostate gland is normal in size. No gross free pelvic fluid. No inguinal lymphadenopathy. OSSEOUS STRUCTURES Mild diffuse degenerative changes of the spine. CT/CT abdomen pelvis w IV con IMPRESSION: 1. No CT evidence for acute abnormality within the chest, abdomen or pelvis. 2. Stable 3 mm right upper lobe pulmonary nodule. No new suspicious pulmonary nodules visualized.
[2024-01-14 13:15] VITALS: BP 107/69; BP 94/62; PULSE 118; PULSE 60; RESP 20; TEMP 36.8; O2SAT 100; O2SAT 94; BMI 27.4
[2024-01-14 13:26] VITALS: BP 107/69; PULSE 118; RESP 20; TEMP 36.8; O2SAT 100
--- NOTE | 2024-01-14 13:33 | ECG_ITS ---
Test Reason : HYPOXIA Blood Pressure : / mmHG Vent. Rate : 106 BPM Atrial Rate : 106 BPM P-R Int : 158 ms QRS Dur : 084 ms QT Int : 344 ms P-R-T Axes : 029 056 055 degrees QTc Int : 456 ms Sinus tachycardia Otherwise normal ECG When compared with ECG of 07-JAN-2023 15:26, No significant change was found Referred By: Cody De La Rosa Electronically Signed By:ISAAC BOLANOS MD
--- NOTE | 2024-01-14 13:38 | ED.GENADULT ---
HPI - General Adult General Chief complaint: Nausea/Vomiting/Diarrhea Stated complaint: NAUSEA VOMITING DIZZY Time Seen by Provider: 01/14/24 13:27 Source: patient Mode of arrival: EMS Limitations: no limitations History of Present Illness HPI narrative: This is a 53-year-old man with a past medical history diabetes mellitus, HIV, CVA (acute ischemic left MCA 12/2022 s/p thrombolysis) with residual right-sided weakness who presents for evaluation of nausea/vomiting/diarrhea. Patient states he started feeling nauseated earlier today. He states vomiting and feeling lightheaded. He states then developing diarrhea as well. He states no lightheadedness at this time. He states mild headache at this time. He states no vision changes or hearing changes. He states no neck pain. He states no chest pain or dyspnea. He states no back pain. He states he did have a stroke a year ago and as a result people have a hard time understanding him. He states no new speech changes. He states no new extremity weakness or paresthesias. He states no fall or injuries. Related Data Previous Rx's ?Medication ?Instructions ?Recorded ondansetron 4 mg disintegrating 4 mg PO Q8H PRN nausea and 07/10/22 tablet vomiting 3 days #10 tabs Allergies Allergy/AdvReac Type Severity Reaction Status Date / Time No Known Allergies Allergy Verified 01/14/24 13:22 Review of Systems Review of Systems: ROS as per [facility] Social History Social History (System 01/07/23 @ 15:11 by Quiana Hussein) Smoked in Last 30 Days: No Advance Directives: Yes Advance Directives Information Provided: Yes Advance Directives on File: No Do you have a plan to hurt others: No Plan Physical Exam ED Vital Signs: Vital Signs - 24 hr 01/14/24 13:15 01/14/24 13:26 01/14/24 15:30 Temperature 98.3 F 98.3 F 99.9 F Pulse Rate 118 H 118 H 113 H Respiratory Rate 20 20 19 Blood Pressure 107/69 107/69 113/78 Pulse Oximetry 100 100 99 Oxygen Delivery Method Room Air Room Air Room Air 01/14/24 18:09 Temperature 100.8 F H Pulse Rate 123 H Respiratory Rate 17 Blood Pressure 117/78 Pulse Oximetry 98 Oxygen Delivery Method Room Air BMI result Body Mass Index 27.4 Gen: NAD, AOx3 HEENT: NCAT, EOMI, normal conjunctiva, neck supple, no nuchal rigidity CV: RRR Pulm: CTAB, no increased work of breathing GI: Soft, NTND, no rebound, guarding or rigidity Neuro: Grossly non focal, GCS 15 Medications Administered Discontinued Medications Generic Name Dose Route Start Last Admin Trade Name Kolby PRN Reason Stop Dose Admin Lactated Ringer's 1,000 mls @ 999 mls/hr 01/14/24 13:33 01/14/24 17:09 Lr IV 01/14/24 14:33 Infused .Q1H1M ONE Infusion Iohexol 85 ml 01/14/24 16:14 01/14/24 16:14 Iohexol 350 Mg/Ml 100 Ml Infus..Btl IV 01/14/24 16:15 85 ml ONCE ONE Administration Ondansetron HCl 4 mg 01/14/24 13:33 01/14/24 14:36 Ondansetron Hcl 4 Mg/2 Ml Vial IVPUSH 01/14/24 13:34 4 mg ONCE ONE Administration Medical Decision Making Medical Decision Making [facility] Narrative: Differential diagnosis includes, but is not limited to nausea/vomiting/diarrhea, viral illness, acute kidney injury, electrolyte abnormality. Patient is provided supportive care with IV fluids and antiemetics here in the emergency room. Patient is afebrile and hemodynamically stable on room air. Exam is benign and reassuring. I reviewed and interpreted labs, which are noncontributory. I reviewed and interpreted EKG, which is unremarkable for any acute findings. The patient has negative for influenza, RSV and COVID-19. CT imaging of the chest, abdomen and pelvis are unremarkable as below. On re-examination, patient is well-appearing and in no acute distress. ?Patient states symptoms have improved. He is tolerating p.o. intake. Etiology of symptoms unclear, but there is no indication for further emergent evaluation in this otherwise well-appearing patient as above. ?Patient is provided written and verbal instructions, educational materials, recommendations for outpatient follow-up, strict return precautions and teach back is performed. ?Patient states understanding and agreement with plan of care. ?Patient is discharged home in stable and improved condition. Admission/Observation Consideration of admission/observation: Escalation of care including admission/observation considered Lab Data [facility] Lab Attestation statement: I reviewed the patient's lab results. I reviewed and interpreted patient's labs which were notable for leukocytosis of 15.4 (previous 17.4), hemoglobin 18.1, hyperglycemia with glucose of 150 (I do not suspect diabetic ketoacidosis, which is typically seen with glucose greater than 250. Further, patient does not have Kussmaul respirations and anion gap is reassuring at 18 within the reference range), mildly elevated calcium of 10.5 and otherwise reassuring blood work including lipase. Patient is negative for COVID-19, influenza and RSV. 01/14/24 13:43 01/14/24 13:43 Labs: Lab Results 01/14/24 01/14/24 Range/Units 13:43 14:33 WBC 15.4 H (4.8-10.8) X10*3/uL RBC 6.01 H (4.60-5.80) X10*6/uL Hgb 18.1 H (14.0-18.0) g/dl Hct 55.0 H (42.0-52.0) % MCV 91.5 (80.0-98.0) fL MCH 30.1 (27.0-33.0) pg MCHC 32.9 (31.0-36.0) g/dl RDW 12.8 (11.0-16.0) % Plt Count 203 D (160-400) X10*3/uL MPV 9.6 (9.4-12.4) fL Immature Gran % (Auto) 0.5 H (0.0-0.4) % Neut % (Auto) 85.5 H (45-73) % Lymph % (Auto) 6.1 L (20-40) % [place] % (Auto) 7.0 (2-11) % Eos % (Auto) 0.6 (0-4) % Baso % (Auto) 0.3 (0-2) % Lymph # (Auto) 0.9 L (1.2-4.9) X10*3/uL [place] # (Auto) 1.1 (0.1-1.2) X10*3/uL Eos # (Auto) 0.1 (0.0-0.4) X10*3/uL Baso # (Auto) 0.1 (0.0-0.2) X10*3/uL Abs Immat Gran (auto) 0.08 H (0.00-0.03) X10*3/uL Absolute Neuts (auto) 13.2 H (2.0-8.3) x10*3/uL Absolute Nucleated RBC 0.000 (0.0-0.012) X10*3/uL Nucleated RBC % (auto) 0.0 (0.0-0.2) /100WBC Sodium 141 (135-145) mmol/L Potassium 4.7 (3.3-5.1) mmol/L Chloride 103 (96-108) mmol/L Carbon Dioxide 25 (22-29) mmol/L Anion Gap 18 (12-20) BUN 16 (9-16) mg/dL Creatinine 1.28 (0.5-1.4) mg/dL Estim Creat Clear Calc 70.4 Estimated GFR 59 Random Glucose 150 H (60-115) mg/dL Calcium 10.5 H D (8.4-10.2) mg/dL Total Bilirubin 1.0 (0.0-1.0) mg/dL AST 26 (5-37) U/L ALT 36 (0-40) U/L Alkaline Phosphatase 99 (39-117) U/L Troponin I High Sens < 2.7 (<3.5-35.0) ng/L Total Protein 9.0 H (6.5-8.0) g/dL Albumin 5.1 H (3.5-5.0) g/dL Lipase 16 (8-78) U/L Influenza Type A (PCR) NEGATIVE (Negative) Influenza Type B (PCR) NEGATIVE (Negative) RSV RNA Qual (PCR) NEGATIVE (Negative) SARS-CoV-2 RNA (RT-PCR) NEGATIVE (Negative) Independent Interpretation I performed an independent interpretation of an: EKG Interpretation: I independently reviewed and interpreted EKG, which demonstrates sinus tachycardia at 106 beats per minute, ID 158, QRS 84, QTC 456, no peaked T-waves, no STEMI Radiology Impression Discussion of test interpretation with radiology: I have reviewed the radiologist's reading. Radiologist Impression: IMPRESSION: 1. No CT evidence for acute abnormality within the chest, abdomen or pelvis. 2. Stable 3 mm right upper lobe pulmonary nodule. No new suspicious pulmonary nodules visualized. Dictated By: Mono Swann MD Signed By: <Electronically signed by Mono Swann MD in OV> 01/14/24 6548 Discharge Plan Discharge Clinical Impression: Nausea vomiting and diarrhea Patient Disposition: Home, Self-Care Instructions: Acute Nausea and Vomiting (ED) Additional Instructions: You were seen and evaluated in the emergency room. Your blood work was normal. Your CAT scan was normal. Please follow-up with your primary care doctor in the next 5-7 days. ?Please return to the emergency room if you develop any worsening symptoms including, but not limited to fever, severe abdominal pain, persistent vomiting, inability to eat/drink or bloody stools. ? Fue atendido y evaluado en la jared de emergencias. Tu an?lisis de cleve fue normal. Mckeon tomograf?a computarizada fue normal. Jessenia un seguimiento con mckeon m?dico de atenci?n primaria en los pr?ximos 5 a 7 d?as. ?Regrese a la jared de emergencias si presenta alg?n s?ntoma que empeore, incluidos, entre otros, fiebre, dolor abdominal intenso, v?mitos persistentes, incapacidad para comer/beber o heces con cleve. Prescriptions: No Action ondansetron 4 mg tablet,disintegrating 4 mg PO Q8H PRN (Reason: nausea and vomiting) 3 Days Qty: 10 0RF Print Language: Cape Verdean
[2024-01-14] MEDS: Lactated Ringers 1,000 ML 999 ML IV (14:36)
[2024-01-14] MEDS: ondansetron HCL 4 MG/2 ML VIAL IVPUSH (14:36)
[2024-01-14 14:40] LABS: MANUAL DIFF FLAG NO
[2024-01-14 14:45] LABS: Basophils Absolute Auto 0.1 X10*3/uL (0.0-0.2); Basophils Percent Auto 0.3 % (0-2); Eosinophils Absolute Auto 0.1 X10*3/uL (0.0-0.4); Eosinophils Percent Auto 0.6 % (0-4); Hemoglobin 18.1 g/dl (14.0-18.0); Imm Gran Abs Auto 0.08 X10*3/uL (0.00-0.03); Imm Gran Pct Auto 0.5 % (0.0-0.4); Lymphocytes Absolute Auto 0.9 X10*3/uL (1.2-4.9); Lymphocytes Percent Auto 6.1 % (20-40); Mean Corpuscular HGB Conc 32.9 g/dl (31.0-36.0); Mean Corpuscular Hemoglobin 30.1 pg (27.0-33.0); Mean Corpuscular Volume 91.5 fL (80.0-98.0); Mean Platelet Volume 9.6 fL (9.4-12.4); Monocytes Absolute Auto 1.1 X10*3/uL (0.1-1.2); Neutrophils Absolute Auto 13.2 x10*3/uL (2.0-8.3); Neutrophils Percent Auto 85.5 % (45-73); Platelet Count 203 X10*3/uL (160-400); Red Blood Count 6.01 X10*6/uL (4.60-5.80); Red Cell Distribution Width 12.8 % (11.0-16.0); White Blood Count 15.4 X10*3/uL (4.8-10.8)
[2024-01-14 15:05] LABS: Alanine Aminotransferase 36 U/L (0-40); Albumin Level 5.1 g/dL (3.5-5.0); Alkaline Phosphatase 99 U/L (39-117); Anion Gap 18 (12-20); Aspartate Amino Transferase 26 U/L (5-37); Blood Urea Nitrogen 16 mg/dL (9-16); Calcium 10.5 mg/dL (8.4-10.2); Carbon Dioxide 25 mmol/L (22-29); Chloride 103 mmol/L (96-108); Creatinine Clr Calc Pharmacy 70.4; Estimated Glomerular Filt Rate 59; Glucose Random 150 mg/dL (60-115); Lipase 16 U/L (8-78); Potassium 4.7 mmol/L (3.3-5.1); Sodium 141 mmol/L (135-145)
[2024-01-14 15:11] LABS: Troponin-I High Sensitivity < 2.7 ng/L (<3.5-35.0)
[2024-01-14 15:30] VITALS: BP 113/78; PULSE 113; RESP 19; TEMP 37.7; O2SAT 99
[2024-01-14 15:41] LABS: Influenza A PCR NEGATIVE (Negative); Influenza B PCR NEGATIVE (Negative); Resp Syncy Virus RNA Qual PCR NEGATIVE (Negative); SARS COV2 PCR INHOUSE NEGATIVE (Negative)
[2024-01-14] MEDS: iohexoL 350 MG/ML 100 ML INFUS..BTL 85 ML IV (16:14)
[2024-01-14 18:09] VITALS: BP 117/78; PULSE 123; RESP 17; TEMP 38.2; O2SAT 98
[2024-01-14 18:58] VITALS: BP 117/78; PULSE 123; RESP 17; TEMP 38.2; O2SAT 98
== END 2024-01-14 18:59 | disposition home or self-care (01) ==
PROVIDERS: Emergency Provider Emergency Medicine; PCP Physician Assistant Medical
DX: R11.2 Nausea with vomiting, unspecified (principal); R19.7 Diarrhea, unspecified; R91.1 Solitary pulmonary nodule; R42 Dizziness and giddiness; R51.9 Headache, unspecified; I69.951 Hemiplegia and hemiparesis following unspecified cerebrovascular disease affecting right dominant side; Z03.818 Encounter for observation for suspected exposure to other biological agents ruled out
CPT/HCPCS: 0241U; 36415; 71250; 74177; 80053; 83690; 84484; 85025; 93005; 96361; 96374; 99284; 99285; J2405; J7120; Q9967

== ENCOUNTER → 2024-01-14 13:33 | Outpatient (BNV) | payer OTHER, SELFPAY | PROVIDERS: Emergency Provider Emergency Medicine; PCP Physician Assistant Medical; Visit Provider Internal Medicine Cardiovascular Disease | DX: R00.0 Tachycardia, unspecified (principal) | CPT/HCPCS: 93010 ==